=== PATIENT | female | born 1935 | race Caucasian/White ===

== ENCOUNTER → 2016-09-28 | Outpatient (CLI) | payer MEDICARE, OTHER ==
[~2016-09-28] VITALS: Ht 160 cm; Wt 76.4 kg
[~2016-09-28] MED LIST: ALBUTEROL0.09 MG/A4 IH; ALBUTEROL0.83 MG/ML INH; ASPIRIN E.C. 8181 MG PO; BENADRYL25 M2 PO; BP Med; CELEXA10 MG PO; COLACE 100100 MG/CAP PO; CORDARONE200 MG/TAB PO; COREG 25MG25 MG/TAB PO; COREG25 MG PO; COZAAR 50MG50 MG/TAB PO; COZAAR50 MG PO; DITROPAN XL 5MG5 M1 PO; EFFEXOR XR75 MG/CAP PO; ELIQUIS 2.5 PO; FENTANYL 25 MCG TOP; IMODIUM 2MG CAPS2 MG PO; LASIX 80MG TABL80 MG PO; LASIX80 MG PO; LEXAPRO20 MG PO; LIDO2%GEL TOP; LORTAB 2.5/5001 TAB PO; LUNESTA2 MG PO; METOPROLOL25 MG PO; MICRO-K 1010 MEQ PO; MIRALAX PA17 GM/Dose PO; MOTRIN 400400 MG/TAB PO; MUCINEX DM 60 M1 TER PO; MULTAQ400 MG PO; MULTIPLE VITAMI1 TAB PO; NEXIUM 40MG40 MG PO; NEXIUM10 MG/Pack PO; NORVASC 10MG10 MG; OMEPRAZOLE40 MG PO; PAMINE2.5 MG PO; PRADAXA75 MG PO; PREMARIN0.3 MG PO; PRIL40 PO; PRILOSEC 20MG20 MG PO; PRINVIL; PROTONIX 40MG T40 MG PO; PROVENTIL0.09 MG/A1 IH; REFRESH 1 ML1 ML OP; RT ADVAIR 228 DISKUS IH; RT SPIRIVA18 MCG IH; SKELAXIN800 MG PO; SPIRIVA18 MCG IH; SYNTHROID0.025 MG PO; TYLENOL 325MG325 MG PO; ULTRAM 50MG TAB50 MG PO; ULTRAM50 MG PO; XARELTO10 MG PO; ZANTAC 7575 MG PO; ZOCOR 20MG20 MG PO; ZOCOR20 MG PO; ZOFRAN4 M1 PO; [UNRECOGNIZED DRUG - OTHER] PO; [UNRECOGNIZED DRUG - OTHER] TP
[2016-09-28 10:18] VITALS: BP 137/63; PULSE 68
[2016-09-28 11:13] VITALS: BP 137/65; PULSE 55
[2016-09-28 11:30] VITALS: BP 142/43; PULSE 62
== END ==
LOC: COL.RAD 09-26 09:00
DX: R91.8 Other nonspecific abnormal finding of lung field (principal); J47.9 Bronchiectasis, uncomplicated; R09.02 Hypoxemia; Z90.2 Acquired absence of lung [part of]; I77.1 Stricture of artery

== ENCOUNTER → 2017-01-09 | Outpatient (REF) | LOC: ZLAB.WCH 19:30 | DX: Z01.89 Encounter for other specified special examinations (principal) ==